=== PATIENT | male | born 1990 | race American Indian/Alaskan Native ===

== ENCOUNTER 2019-11-09 20:28 | Emergency (ER) | payer MEDICARE, MEDICAID ==
--- NOTE | 2019-11-09 21:31 | EDM.PDOC ---
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 Over the past several days has had some mild gastroenteritis, and tonight he became very weak in his legs and developed slurred speech. They brought him in for evaluation. He has a mild headache but no fever or chills, denies shortness of breath, despite loose stools he has not had nausea or vomiting. He looks comfortable. Recommendations are checking a lactic acid, electrolytes, and giving normal saline along with lipid therapy. Onset: Gradual (Symptoms have developed over the last 24 hours) Location: Reports: Generalized Associated Symptoms: Reports: Headaches, Malaise, Weakness. Denies: Chest Pain, Cough, Fever/Chills, Shortness of Breath denies pain Pain Score (Numeric/FACES): 0 - Related Data Allergies Allergy/AdvReac Type Severity Reaction Status Date / Time No Known Allergies Allergy Verified 11/09/19 21:16 Home Meds: Home Meds Citric Acid/Potassium Citrate [Polycitra-K] 15 ml PO TIDMEALS 11/10/19 [History] Clindamycin Phosphate [Cleocin T 1% Lotion] 1 applic TOP BID 11/10/19 [History] DULoxetine HCl [Cymbalta] 60 mg PO DAILY 11/10/19 [History] Hydrogenated Vegetable Oil [Base X] 30 ml PO QID 11/10/19 [History] levOCARNitine (with sugar) [Levocarnitine Soln] 7.5 ml PO TID 11/10/19 [History] ED ROS GENERAL - Review of Systems Review Of Systems: See Below Constitutional: Reports: Malaise. Denies: Fever, Chills HEENT: Denies: Vision Change Respiratory: Denies: Shortness of Breath Cardiovascular: Denies: Chest Pain GI/Abdominal: Reports: Diarrhea, Nausea. Denies: Abdominal Pain, Vomiting Musculoskeletal: Reports: No Symptoms Skin: Reports: No Symptoms Neurological: Reports: Headache ED EXAM, GENERAL - Physical Exam Exam: See Below Exam Limited By: No Limitations General Appearance: Alert, No Apparent Distress Eye Exam: Bilateral Eye: EOMI Head: Atraumatic Respiratory/Chest: No Respiratory Distress, Lungs Clear Cardiovascular: Regular Rate, Rhythm GI/Abdominal: Soft, Non-Tender Neurological: Alert, Slow to Respond Psychiatric: Flat Affect Skin Exam: Warm, Dry Course - Vital Signs Last Recorded V/S: Last Vital Signs Temp 98.1 F 11/09/19 21:22 Pulse 82 11/09/19 21:22 Resp 14 11/09/19 21:22 BP 139/94 H 11/09/19 21:22 Pulse Ox 100 11/09/19 21:22 - Orders/Labs/Meds Labs: Laboratory Tests 11/09/19 11/09/19 Range/Units 21:52 21:52 Sodium 142 (140-148) mmol/L Potassium 4.2 (3.6-5.2) mmol/L Chloride 106 (100-108) mmol/L Carbon Dioxide 24 (21-32) mmol/L Anion Gap 12.1 (5.0-14.0) mmol/L BUN 8 (7-18) mg/dL Creatinine 1.0 (0.8-1.3) mg/dL Est Cr Clr Drug Dosing 122.87 mL/min Estimated GFR (MDRD) > 60 (>60) Glucose 98 (74-106) mg/dL Lactic Acid 2.3 H (0.4-2.0) mmol/L Calcium 8.8 (8.5-10.1) mg/dL Lactate Dehydrogenase 268 H (85-227) U/L Meds: Medications Discontinued Medications Generic Name Dose Route Start Last Admin Trade Name Odell PRN Reason Stop Dose Admin Acetaminophen 500 mg 11/09/19 23:20 11/09/19 23:58 Tylenol Extra Strength PO 11/09/19 23:21 500 mg ONETIME ONE Administration Sodium Chloride 1,000 mls @ 300 mls/hr 11/09/19 21:45 11/09/19 21:56 Normal Saline IV 300 mls/hr ASDIRECTED JOHNSON Administration Fat Emulsion Intravenous 250 mls @ 250 mls/hr 11/09/19 21:45 11/09/19 22:26 Intralipid 20% IV 11/09/19 22:44 250 mls/hr ONETIME ONE Administration Fat Emulsion Intravenous 250 mls @ 250 mls/hr 11/09/19 22:45 11/09/19 23:22 Intralipid 20% IV 11/09/19 23:44 250 mls/hr ONETIME ONE Administration - Re-Assessments/Exams Free Text/Narrative Re-Assessment/Exam: 11/09/19 23:27 Patient does have what appears to be general diffuse weakness, mild lethargy, flat affect and slightly slurred speech. An IV was started, patient will be hydrated with 300 cc of normal saline an hour, LDH and serum lactate as well as electrolytes ordered and lipid therapy initiated per protocol. 11/10/19 00:10 Electrolytes are normal, serum lactate and LDH were just minimally elevated. Patient improved rapidly with the IV lipids, and will be discharged after his 100 g. He asked for something to eat and was given a low carbohydrate snack. Also given 500 mg of acetaminophen for "headache" Departure - Departure Time of Disposition: 00:38 Disposition: Home, Self-Care 01 Clinical Impression: Generalized muscle weakness - Discharge Information Instructions: Weakness, [id number] Referrals: PCP,None [Primary Care Provider] - Forms: ED Department Discharge Care Plan Goals: Continue your current medications as prescribed, follow your low carbohydrate diet closely and return if worsening. Sepsis Event Note (ED) - Evaluation Sepsis Screening Result: No Definite Risk - Focused Exam Vital Signs: Vital Signs Temp Pulse Resp BP Pulse Ox 11/09/19 21:22 98.1 F 82 14 139/94 H 100 11/09/19 21:17 98.1 F 82 14 139/94 H 100
[2019-11-09] MEDS ORDERED: Sodium Chloride 0.9% 1,000 ML IV SCH (21:45)
[2019-11-09] MEDS ORDERED: Fat Emulsion 250 ML IV ONE ×2 (21:45→22:45)
[2019-11-09] MEDS ORDERED: Acetaminophen 500 MG Tab PO ONE (23:20)
== END 2019-11-10 00:39 | disposition home or self-care (01) ==
LOC: JP.ED 20:28
DX: M62.81 Muscle weakness (generalized) (principal); Z79.899 Other long term (current) drug therapy
CPT/HCPCS: 36415; 80048; 83605; 83615; 96365; 96366; 99284; A9270; J3490; J7030; 99283

== ENCOUNTER 2019-11-20 21:42 | Emergency (ER) | payer MEDICARE, MEDICAID ==
[2019-11-20] MEDS ORDERED: LORazepam 2 MG/ML SDV IVPUSH ONE (22:26)
[2019-11-20] MEDS ORDERED: Haloperidol Lactate 5 MG/ML SDV IVPUSH ONE (22:26)
[2019-11-20] MEDS ORDERED: LORazepam 2 MG/ML SDV IM ONE (22:31)
[2019-11-20] MEDS ORDERED: Haloperidol Lactate 5 MG/ML SDV IM ONE (22:31)
--- NOTE | 2019-11-20 22:35 | EDM.PDOC ---
ED HPI GENERAL MEDICAL PROBLEM - General Chief Complaint: General Stated Complaint: MEDICAL [facility]IA [facility] Time Seen by Provider: 11/20/19 22:00 Source of Information: Reports: EMS, Police History Limitations: Reports: Uncooperative - History of Present Illness INITIAL COMMENTS - FREE TEXT/NARRATIVE: 28-year-old male was recently discharged from [facility] for treatment of pyruvate dehydrogenase deficiency syndrome, had a clinic visit today but after the clinic visit became agitated and uncooperative at the residential. He demonstrated rhythmic muscle contractions, squinting of his eyes and cussing, not able to be redirected. Police were called followed by EMS. He was brought in under moderate control, and needed no medications in route but after allowing us to get urine sample and blood tests, he started to escalate and wanted his IV out. Within 30 minutes he had pulled out his IV, was pushing around the bed in the exam room and needed law enforcement to control him. At this point he was given 5 mg of Haldol and 2 mg of Ativan IM. A phone consultation was made with the physician on-call for genetics and metabolism disorders. Onset: Gradual (Behavioral problems seemed to escalate through the day) Associated Symptoms: Reports: Confusion. Denies: Fever/Chills, Nausea/Vomiting, Shortness of Breath, Weakness - Related Data Allergies Allergy/AdvReac Type Severity Reaction Status Date / Time No Known Allergies Allergy Verified 11/20/19 22:11 Home Meds: Home Meds Citric Acid/Potassium Citrate [Polycitra-K] 15 ml PO TIDMEALS 11/10/19 [History] Clindamycin Phosphate [Cleocin T 1% Lotion] 1 applic TOP BID 11/10/19 [History] DULoxetine HCl [Cymbalta] 60 mg PO DAILY 11/10/19 [History] Hydrogenated Vegetable Oil [Base X] 30 ml PO QID 11/10/19 [History] levOCARNitine (with sugar) [Levocarnitine Soln] 7.5 ml PO TID 11/10/19 [History] Past Medical History Gastrointestinal History: Reports: Other (See Below) 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 Musculoskeletal History: Reports: Fracture Psychiatric History: Reports: Anxiety, Depression Dermatologic History: Reports: Other (See Below) Other Dermatologic History: acne Social & Family History - Tobacco Use Smoking Status *Q: Current Every Day Smoker Years of Tobacco use: 11 Packs/Tins Daily: 0.2 - Caffeine Use Caffeine Use: Reports: Coffee, Soda - Recreational Drug Use Recreational Drug Use: Yes Recreational Drug Type: Reports: Marijuana/Hashish, Methamphetamine Recreational Drug Use Frequency: Monthly ED ROS GENERAL - Review of Systems Review Of Systems: See Below Constitutional: Reports: Malaise. Denies: Fever, Chills HEENT: Denies: Vision Change Respiratory: Denies: Shortness of Breath GI/Abdominal: Denies: Nausea, Vomiting Musculoskeletal: Denies: Neck Pain Skin: Reports: Bruising (Patient has numerous bruises on his arms from recent IVs) Neurological: Denies: Headache ED EXAM, GENERAL - Physical Exam Exam: See Below Exam Limited By: No Limitations General Appearance: Alert, No Apparent Distress, Other (Patient is moderately agitated initially, became more severe) Eye Exam: Bilateral Eye: Normal Inspection Head: Atraumatic Neck: Supple, Non-Tender Respiratory/Chest: Lungs Clear Cardiovascular: Regular Rate, Rhythm, Tachycardia GI/Abdominal: Non-Tender Neurological: Alert, Confused Psychiatric: Anxious, Other (Agitated and uncooperative) Course - Vital Signs Last Recorded V/S: Last Vital Signs Temp 98.6 F 11/20/19 23:53 Pulse 98 11/20/19 23:53 Resp 16 11/20/19 23:53 BP 124/75 11/20/19 23:53 Pulse Ox 100 11/20/19 23:53 - Orders/Labs/Meds Labs: Laboratory Tests 11/20/19 11/20/19 11/20/19 Range/Units 22:00 22:00 22:00 WBC 9.7 (4.5-11.0) K/uL RBC 5.38 (4.30-5.90) M/uL Hgb 14.9 (12.0-15.0) g/dL Hct 47.2 (40.0-54.0) % MCV 88 (80-98) fL MCH 28 (27-31) pg MCHC 32 (32-36) % Plt Count 415 H (150-400) K/uL Neut % (Auto) 57 (36-66) % Lymph % (Auto) 33 (24-44) % [place] % (Auto) 7 H (2-6) % Eos % (Auto) 3 (2-4) % Baso % (Auto) 1 (0-1) % Sodium 142 (140-148) mmol/L Potassium 3.9 (3.6-5.2) mmol/L Chloride 104 (100-108) mmol/L Carbon Dioxide 19 L (21-32) mmol/L Anion Gap 22.9 H (5.0-14.0) mmol/L BUN 13 D (7-18) mg/dL Creatinine 1.5 H (0.8-1.3) mg/dL Est Cr Clr Drug Dosing TNP Estimated GFR (MDRD) 57 L (>60) Glucose 120 H (74-106) mg/dL Lactic Acid 9.6 H (0.4-2.0) mmol/L Calcium 9.3 (8.5-10.1) mg/dL Salicylates (2.0-20.0) mg/dL Urine Opiates Screen (NEGATIVE) Ur Oxycodone Screen (NEGATIVE) Urine Methadone Screen (NEGATIVE) Ur Propoxyphene Screen (NEGATIVE) Acetaminophen (10.0-30.0) ug/mL Ur Barbiturates Screen (NEGATIVE) Ur Tricyclics Screen (NEGATIVE) Ur Phencyclidine Scrn (NEGATIVE) Ur Amphetamine Screen (NEGATIVE) U Methamphetamines Scrn (NEGATIVE) Urine MDMA Screen (NEGATIVE) U Benzodiazepines Scrn (NEGATIVE) U Cocaine Metab Screen (NEGATIVE) U Marijuana (THC) Screen (NEGATIVE) 11/20/19 11/20/19 11/20/19 Range/Units 22:00 22:00 22:04 WBC (4.5-11.0) K/uL RBC (4.30-5.90) M/uL Hgb (12.0-15.0) g/dL Hct (40.0-54.0) % MCV (80-98) fL MCH (27-31) pg MCHC (32-36) % Plt Count (150-400) K/uL Neut % (Auto) (36-66) % Lymph % (Auto) (24-44) % [place] % (Auto) (2-6) % Eos % (Auto) (2-4) % Baso % (Auto) (0-1) % Sodium (140-148) mmol/L Potassium (3.6-5.2) mmol/L Chloride (100-108) mmol/L Carbon Dioxide (21-32) mmol/L Anion Gap (5.0-14.0) mmol/L BUN (7-18) mg/dL Creatinine (0.8-1.3) mg/dL Est Cr Clr Drug Dosing Estimated GFR (MDRD) (>60) Glucose (74-106) mg/dL Lactic Acid (0.4-2.0) mmol/L Calcium (8.5-10.1) mg/dL Salicylates 1.4 L (2.0-20.0) mg/dL Urine Opiates Screen Negative (NEGATIVE) Ur Oxycodone Screen Negative (NEGATIVE) Urine Methadone Screen Negative (NEGATIVE) Ur Propoxyphene Screen Negative (NEGATIVE) Acetaminophen 0.0 L (10.0-30.0) ug/mL Ur Barbiturates Screen Negative (NEGATIVE) Ur Tricyclics Screen Negative (NEGATIVE) Ur Phencyclidine Scrn Negative (NEGATIVE) Ur Amphetamine Screen Negative (NEGATIVE) U Methamphetamines Scrn Negative (NEGATIVE) Urine MDMA Screen Negative (NEGATIVE) U Benzodiazepines Scrn Negative (NEGATIVE) U Cocaine Metab Screen Negative (NEGATIVE) U Marijuana (THC) Screen Negative (NEGATIVE) Meds: Medications Discontinued Medications Generic Name Dose Route Start Last Admin Trade Name Freq PRN Reason Stop Dose Admin Haloperidol Lactate 5 mg 11/20/19 22:26 Haldol IVPUSH 11/20/19 22:27 ONETIME ONE Haloperidol Lactate 5 mg 11/20/19 22:31 11/20/19 22:42 Haldol IM 11/20/19 22:32 5 mg ONETIME ONE Administration Sodium Chloride 1,000 mls @ 500 mls/hr 11/20/19 23:45 11/20/19 23:50 Normal Saline IV 500 mls/hr ASDIRECTED JOHNSON Administration Lorazepam 1 mg 11/20/19 22:26 Ativan IVPUSH 11/20/19 22:27 ONETIME ONE Lorazepam 2 mg 11/20/19 22:31 11/20/19 22:42 Ativan IM 11/20/19 22:32 2 mg ONETIME ONE Administration - Re-Assessments/Exams Free Text/Narrative Re-Assessment/Exam: 11/20/19 23:30 CBC, urine drug screen, CMP with lactic acid were obtained. Urine drug screen was negative, lactic acid level was 9.6. A phone consultation was made with the genetics and metabolism department in the [facility], this behavioral exacerbation has happened with this patient in the past and is not related to his deficiency. With his elevated lactic acid however, they recommended admitting for lipid therapy and fluid therapy and reassessing tomorrow. Patient improved markedly after the Haldol and Ativan, drank some water and actually did not remember pulling his IV out and agreed to another IV. I also checked an acetaminophen and salicylate level they were negative. Departure - Departure Time of Disposition: 00:49 Disposition: DC/Tfer to Other Clinical Impression: Psychomotor agitation, Acidosis, lactic - Discharge Information Referrals: PCP,None [Primary Care Provider] - Forms: ED Department Discharge Care Plan Goals: Patient will be transferred to [place] for further observation, lipid therapy, and continued normal saline fluids. A psychiatric consult will likely be necessary tomorrow. Sepsis Event Note (ED) - Evaluation Sepsis Screening Result: No Definite Risk - Focused Exam Vital Signs: Vital Signs Temp Pulse Resp BP Pulse Ox 11/20/19 23:53 98.6 F 98 16 124/75 100 11/20/19 21:53 98.3 F 116 H 25 H 134/94 H 100
[2019-11-20] MEDS ORDERED: Sodium Chloride 0.9% 1,000 ML IV SCH (23:45)
== END 2019-11-21 00:49 | disposition other institution (70) ==
LOC: JP.ED 21:42
DX: R45.1 Restlessness and agitation (principal); E87.2 Acidosis; F41.9 Anxiety disorder, unspecified; F32.9 Major depressive disorder, single episode, unspecified; F17.210 Nicotine dependence, cigarettes, uncomplicated; Z79.899 Other long term (current) drug therapy
CPT/HCPCS: 36415; 80048; 80305; 80307; 83605; 85025; 96360; 96372; 99285; J1630; J2060; J7030

== ENCOUNTER 2020-09-29 05:13 | Emergency (ER) | payer MEDICARE, MEDICAID ==
--- NOTE | 2020-09-29 05:45 | EDM.PDOC ---
ED HPI GENERAL MEDICAL PROBLEM - General Chief Complaint: Chest Pain Stated Complaint: CHEST PAIN,SOB Time Seen by Provider: 09/29/20 05:35 Source of Information: Reports: Patient, Other (halfway provider) History Limitations: Reports: No Limitations - History of Present Illness INITIAL COMMENTS - FREE TEXT/NARRATIVE: Oleksandr is a 29-year-old male presenting to the ED for evaluation of chest pain that started yesterday. The patient describes the pain is epigastric radiating up into the chest. He reports that it is sharp and feels like it is about the size of a golf ball. It worsens with deep inspiration. He has not experienced this pain before. The pain has been constant. It has made him quite anxious. Epigastric Pain Score (Numeric/FACES): 8 - Related Data Allergies Allergy/AdvReac Type Severity Reaction Status Date / Time No Known Allergies Allergy Verified 09/29/20 05:23 Home Meds: Home Meds Clindamycin Phosphate [Cleocin T 1% Lotion] 1 applic TOP BID 11/10/19 [History] DULoxetine HCl [Cymbalta] 60 mg PO DAILY 11/10/19 [History] Hydrogenated Vegetable Oil [Base X] 30 ml PO TID 11/10/19 [History] levOCARNitine (with sugar) [Levocarnitine Soln] 7.5 ml PO TID 11/10/19 [History] Acetaminophen 650 mg PO ASDIRECTED PRN 09/29/20 [History] Omeprazole 20 mg PO DAILY #14 tablet. 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 Musculoskeletal History: Reports: Fracture Psychiatric History: Reports: Anxiety, Depression Dermatologic History: Reports: Other (See Below) Other Dermatologic History: acne Social & Family History - Tobacco Use Tobacco Use Status *Q: Light Tobacco User Years of Tobacco use: 10 Packs/Tins Daily: 0.1 - Caffeine Use Caffeine Use: Reports: Coffee, Soda - Recreational Drug Use Recreational Drug Use: Yes Drug Use in Last 12 Months: Yes Recreational Drug Type: Reports: Marijuana/Hashish, Methamphetamine Recreational Drug Last Use: june 2020 ED ROS GENERAL - Review of Systems Review Of Systems: See Below Constitutional: Reports: No Symptoms HEENT: Reports: No Symptoms Respiratory: Reports: Shortness of Breath Cardiovascular: Reports: Chest Pain (Epigastric radiating retrosternal) Endocrine: Reports: No Symptoms GI/Abdominal: Reports: Abdominal Pain (Epigastric pain) : Reports: No Symptoms Musculoskeletal: Reports: No Symptoms Skin: Reports: No Symptoms Neurological: Reports: No Symptoms Psychiatric: Reports: No Symptoms Hematologic/Lymphatic: Reports: No Symptoms Immunologic: Reports: No Symptoms ED EXAM, GENERAL - Physical Exam Exam: See Below Exam Limited By: No Limitations General Appearance: Alert, Anxious, Mild Distress Eye Exam: Bilateral Eye: EOMI, PERRL Throat/Mouth: Normal Inspection, Normal Oropharynx, Normal Voice, No Airway Compromise Head: Atraumatic, Normocephalic Neck: Normal Inspection, Supple Respiratory/Chest: No Respiratory Distress, Lungs Clear, Normal Breath Sounds Cardiovascular: Normal Peripheral Pulses, Regular Rate, Rhythm, No Murmur Peripheral Pulses: 2+: Radial (L), Radial (R), Posterior Tibial (L), Posterior Tibial (R) GI/Abdominal: Normal Bowel Sounds, Soft, Non-Tender Back Exam: Normal Inspection Extremities: Normal Inspection, Normal Range of Motion, No Pedal Edema Neurological: Alert, Oriented, Normal Cognition, No Motor/Sensory Deficits Psychiatric: Normal Affect, Anxious Skin Exam: Warm, Dry #1 Interpretation EKG Date: 09/29/20 Time: 05:25 Rhythm: NSR Rate (Beats/Min): 81 [place]: Normal P-Wave: Present QRS: Normal ST-T: Normal QT: Normal Comparison: NA - No Prior EKG Course - Vital Signs Last Recorded V/S: Last Vital Signs Temp 35.8 C L 09/29/20 05:31 Pulse 79 09/29/20 05:31 Resp 17 09/29/20 05:31 BP 147/87 H 09/29/20 05:31 Pulse Ox 98 09/29/20 05:31 - Orders/Labs/Meds Orders: Active Orders 24 hr Category Date Time Status EKG Documentation Completion [RC] ASDIRECTED Care 09/29/20 05:46 Active Chest 1V Frontal [CR] Stat Exams 09/29/20 05:45 Taken GI Cocktail 30ml Med 09/29/20 06:42 Ordered Alum Hydrox/Mag Hydrox/Simeth [Mag-Al Plus] 15 ml Lidocaine 2% [Xylocaine 2% Viscous] 15 ml PO ONETIME EKG 12 Lead [EK] Routine Ther 09/29/20 05:45 Ordered Labs: Laboratory Tests 09/29/20 09/29/20 Range/Units 05:50 05:50 WBC 14.4 H (4.5-11.0) K/uL RBC 5.42 (4.30-5.90) M/uL Hgb 15.5 H (12.0-15.0) g/dL Hct 45.9 (40.0-54.0) % MCV 85 (80-98) fL MCH 29 (27-31) pg MCHC 34 (32-36) % Plt Count 272 (150-400) K/uL Neut % (Auto) 76.3 H (36-66) % Lymph % (Auto) 10.7 L (24-44) % [place] % (Auto) 11.1 H (2-6) % Eos % (Auto) 1.5 L (2-4) % Baso % (Auto) 0.4 (0-1) % Sodium 140 (140-148) mmol/L Potassium 4.0 (3.6-5.2) mmol/L Chloride 102 (100-108) mmol/L Carbon Dioxide 24 (21-32) mmol/L Anion Gap 14.1 H (5.0-14.0) mmol/L BUN 8 (7-18) mg/dL Creatinine 0.9 (0.8-1.3) mg/dL Est Cr Clr Drug Dosing 135.32 mL/min Estimated GFR (MDRD) > 60 (>60) Glucose 126 H (74-106) mg/dL Calcium 8.7 (8.5-10.1) mg/dL Total Bilirubin 0.6 (0.2-1.0) mg/dL AST 24 (15-37) U/L ALT 40 (12-78) U/L Alkaline Phosphatase 60 (46-116) U/L Troponin I < 0.017 (0.000-0.056) ng/mL C-Reactive Protein 3.77 H (0.0-0.3) mg/dL Total Protein 7.7 (6.4-8.2) g/dL Albumin 3.9 (3.4-5.0) g/dL Globulin 3.8 H (2.3-3.5) g/dL Albumin/Globulin Ratio 1.0 L (1.2-2.2) Lipase 85 (73-393) U/L - Re-Assessments/Exams Free Text/Narrative Re-Assessment/Exam: 09/29/20 06:12 I reviewed the patient's labs showing a CBC with a hemoglobin of 15.5, hematocrit of 45.9, leukocyte count of 14.4, and platelet count of 272,000. Patient's portable chest x-ray is unremarkable. 09/29/20 06:42 I reviewed the comprehensive metabolic panel which was unremarkable. The patient C-reactive protein is elevated at 3.77, lipase is 85, and troponin I is normal at less than 0.017. We will try a GI cocktail to see if the pain is coming from esophagitis secondary to reflux. I suspect that this is the cause otherwise it may be pleurodynia due to acute pleurisy with his elevated CRP. The GI cocktail did improve his pain indicating this is most likely GERD with esophagitis. We will put the patient on a PPI for 2 weeks to see if that helps improve things. He will need to follow-up with his primary care provider. Departure - Departure Time of Disposition: 06:53 Disposition: Home, Self-Care 01 Clinical Impression: Gastroesophageal reflux disease with esophagitis without hemorrhage Instructions: Gastroesophageal Reflux Disease, Adult, [id number] Referrals: PCP,None [Primary Care Provider] - Forms: ED Department Discharge Sepsis Event Note (ED) - Evaluation Sepsis Screening Result: No Definite Risk - Focused Exam Vital Signs: Vital Signs Temp Pulse Resp BP Pulse Ox 09/29/20 05:31 35.8 C L 79 17 147/87 H 98 - Problem List & Annotations (1) Gastroesophageal reflux disease with esophagitis without hemorrhage SNOMED Code(s): 594945423 Code(s): K21.00 - GASTRO-ESOPHAGEAL REFLUX DIS WITH ESOPHAGITIS, WITHOUT BLEED Status: Acute Priority: High Current Visit: Yes - Problem List Review Problem List Initiated/Reviewed/Updated: Yes - My Orders Last 24 Hours: My Active Orders 09/29/20 05:45 Chest 1V Frontal [CR] Stat EKG 12 Lead [EK] Routine 09/29/20 05:46 EKG Documentation Completion [RC] ASDIRECTED 09/29/20 06:42 GI Cocktail 30ml Alum Hydrox/Mag Hydrox/Simeth [Mag-Al Plus] 15 ml Lidocaine 2% [Xylocaine 2% Viscous] 15 ml PO ONETIME - Assessment/Plan Last 24 Hours: My Active Orders 09/29/20 05:45 Chest 1V Frontal [CR] Stat EKG 12 Lead [EK] Routine 09/29/20 05:46 EKG Documentation Completion [RC] ASDIRECTED 09/29/20 06:42 GI Cocktail 30ml Alum Hydrox/Mag Hydrox/Simeth [Mag-Al Plus] 15 ml Lidocaine 2% [Xylocaine 2% Viscous] 15 ml PO ONETIME
[2020-09-29] MEDS ORDERED: Alum Hydrox/Mag Hydrox/Simeth 15 ML, Lidocaine 2% 15 ML PO ONE ×2 (06:42)
--- NOTE | 2020-09-29 09:49 | CR ---
CHEST: Portable 09/29/2020 at 6:15 AM CLINICAL HISTORY:Chest pain COMPARISON:None FINDINGS: The heart size, pulmonary vascularity and hilar structures are normal. No infiltrate effusion or pneumothorax is seen. IMPRESSION: No acute cardiopulmonary process.
== END 2020-09-29 07:01 | disposition home or self-care (01) ==
LOC: JP.ED 05:13
DX: K21.00 Gastro-esophageal reflux disease with esophagitis, without bleeding (principal); Z72.0 Tobacco use; Z79.899 Other long term (current) drug therapy
CPT/HCPCS: 36415; 71045; 80053; 83690; 84484; 85025; 86140; 93005; 99285; A9270

== ENCOUNTER 2020-10-29 18:23 | Emergency (ER) | payer MEDICARE, MEDICAID ==
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
== END 2020-10-29 19:10 | disposition home or self-care (01) ==
LOC: JP.ED 18:23
DX: T73.3XXA Exhaustion due to excessive exertion, initial encounter (principal); E74.4 Disorders of pyruvate metabolism and gluconeogenesis; Z72.0 Tobacco use
CPT/HCPCS: 99284